=== PATIENT | female | born 1990 | race Caucasian/White ===

== ENCOUNTER 2021-03-10 14:39 | Emergency (ER) | payer OTHER ==
[~2021-03-10 14:39] MED LIST: ALPRAZOLAM0.5 MG PO; BROMFED DM COU473 ML PO; COLACE 100MG C100 MG PO; LEVAQUIN750 MG PO; NORCO 7.5-3251 EACH PO; PROAIR HFA8.5 GM INH; ROBAXIN500 MG PO
[2021-03-10 18:00] LABS: HEMOGLOBIN 14.5 gm/dl (12.3-15.3); RED BLOOD COUNT 4.71 M/UL (4.00-5.10); WHITE BLOOD COUNT 9.5 K/UL (4.5-11.0)
[2021-03-10 18:27] LABS: BUN/CREATININE RATIO 18 (0-10)
[2021-03-10] MEDS ORDERED: CEFUROXIME500 MG PO (20:06)
[2021-03-10] MEDS ORDERED: MOBIC15 MG PO (20:06)
== END 2021-03-10 21:19 | disposition home or self-care (01) ==
LOC: ER1 14:39
PROVIDERS: Physician Assistant
DX: R07.89 Other chest pain (principal); N39.0 Urinary tract infection, site not specified; R10.13 Epigastric pain; K21.9 Gastro-esophageal reflux disease without esophagitis; F17.200 Nicotine dependence, unspecified, uncomplicated; Z88.0 Allergy status to penicillin; Z88.5 Allergy status to narcotic agent; Z79.899 Other long term (current) drug therapy
CPT/HCPCS: 71045; 80053; 81001; 82550; 82553; 83690; 83874; 84484; 84703; 85025; 87077; 87086; 87186; 93005; 96372; 99285; J1885